=== PATIENT | male | born 1955 | race Caucasian/White ===

== ENCOUNTER 2017-03-29 07:54 | Observation (INO) | payer MEDICAID ==
[~2017-03-29] VITALS: Ht 177.8 cm; Wt 76.0 kg
[~2017-03-29 07:54] MED LIST: ALBU0.63 NEB; AMOX1TAB12 PO; CARB200T PO; HYDR50TA13 PO; IBUP800T PO; LOSA25TA5 PO; MIRT30TA4 PO; OMEP20TA62 PO
[2017-03-29] MEDS ORDERED: RISPERIDONE 1 MG TABLET PO ONE (08:37)
[2017-03-29 11:34] LABS: ASPARTATE AMINO TRANSFERASE 25 U/L (15-37); BLOOD UREA NITROGEN 16 mg/dL (7-18)
[2017-03-29] MEDS ORDERED: ONDANSETRON ODT 4 MG PO PRN (12:00)
[2017-03-29] MEDS ORDERED: DOCUSATE 100 MG CAPSULE PO PRN (12:00)
[2017-03-29] MEDS ORDERED: ZIPRASIDONE 20MG CAPSULE PO PRN (12:00)
[2017-03-29] MEDS ORDERED: POLYETHYLENE GLYCOL 17 GM PACKET PO PRN (12:00)
[2017-03-29] MEDS ORDERED: LORazepam 1MG TABLET PO PRN (12:00)
[2017-03-29] MEDS ORDERED: BISACODYL 10 MG SUPP PR PRN (12:00)
[2017-03-29] MEDS ORDERED: ACETAMINOPHEN 325 MG TABLET PO PRN (12:00)
[2017-03-29] MEDS ORDERED: NICOTINE 21 MG/24 HR PATCH.TD24 ONE (12:35)
[2017-03-29] MEDS ORDERED: THIAMINE 100MG TABLET ONE (12:36)
[2017-03-29] MEDS: THIAMINE 100MG TABLET PO SCH (12:41)
[2017-03-29] MEDS: NICOTINE 21 MG/24 HR PATCH.TD24 TD SCH (12:41)
[2017-03-29] MEDS: MULTIVITAMIN 1 TABLET PO SCH (13:22)
[2017-03-29] MEDS: FOLIC ACID 1 MG TABLET PO SCH (13:23)
[2017-03-29 14:53] LABS: DAU SCREEN DISCLAIMER
[2017-03-29 14:58] LABS: PATH.CAST-FLAG NOT PRESENT; SPERM-FLAG NOT PRESENT; SRC-FLAG NOT PRESENT; XTAL-FLAG NOT PRESENT; YLC-FLAG NOT PRESENT
[2017-03-29] MEDS ORDERED: ZIPRASIDONE 20 MG INJ IM PRN (15:50)
[2017-03-29 17:58] VITALS: BP 131/65
[2017-03-29 18:19] VITALS: BP 131/65
[2017-03-29 19:23] VITALS: BP 121/68
[2017-03-30 07:41] VITALS: BP 128/76
[2017-03-30] MEDS: FOLIC ACID 1 MG TABLET PO SCH (08:23)
[2017-03-30] MEDS: THIAMINE 100MG TABLET PO SCH (08:23)
[2017-03-30] MEDS: MULTIVITAMIN 1 TABLET PO SCH (08:23)
[2017-03-30] MEDS: NICOTINE 21 MG/24 HR PATCH.TD24 TD SCH (12:58)
[2017-03-30] MEDS ORDERED: FOLI-17 PO (15:24)
[2017-03-30] MEDS ORDERED: MULT1TAB60 PO (15:24)
[2017-03-30] MEDS ORDERED: THIA100T6 PO (15:24)
== END 2017-03-30 18:45 | disposition home or self-care (01) ==
LOC: ED 08:17 → EDIP 10:38 → 3E 15:44
PROVIDERS: ADMIT Internal Medicine; ATTEND Internal Medicine
DX: F19.151 Other psychoactive substance abuse with psychoactive substance-induced psychotic disorder with hallucinations (principal); F19.150 Other psychoactive substance abuse with psychoactive substance-induced psychotic disorder with delusions; F22 Delusional disorders; R44.1 Visual hallucinations; R00.0 Tachycardia, unspecified; I10 Essential (primary) hypertension; J44.9 Chronic obstructive pulmonary disease, unspecified; J38.6 Stenosis of larynx; B18.2 Chronic viral hepatitis C; F41.9 Anxiety disorder, unspecified; K21.9 Gastro-esophageal reflux disease without esophagitis; Z59.0 Homelessness; Z91.19 Patient's noncompliance with other medical treatment and regimen; Z80.8 Family history of malignant neoplasm of other organs or systems; Z82.3 Family history of stroke; Z87.891 Personal history of nicotine dependence
CPT/HCPCS: 36415; 80053; 80307; 81001; 85025; 93005; 99285; G0378

== ENCOUNTER 2017-04-29 20:01 | Inpatient (IN) | payer MEDICAID ==
[~2017-04-29] VITALS: Ht 177.8 cm; Wt 73.9 kg
[~2017-04-29 20:01] MED LIST changes: +FOLI-17 PO; +MULT1TAB60 PO; +THIA100T6 PO
[2017-04-29 21:16] LABS: DAU SCREEN DISCLAIMER
[2017-04-29 21:22] LABS: ASPARTATE AMINO TRANSFERASE 8 U/L (15-37); BLOOD UREA NITROGEN 11 mg/dL (7-18)
[2017-04-29 21:26] LABS: ACETAMINOPHEN < 2 mcg/mL (10-30)
[2017-04-30] MEDS ORDERED: SODIUM CHLORIDE FLUSH 10ML SYR IVF PRN (07:00)
[2017-04-30] MEDS ORDERED: ALBUTEROL SULFATE 2.5 MG/3 ML NEB PRN (08:30)
[2017-04-30] MEDS ORDERED: HALOPERIDOL 5 MG/ML IM PRN (08:30)
[2017-04-30] MEDS ORDERED: TEMAZEPAM 15 MG CAPSULE PO PRN (08:30)
[2017-04-30] MEDS ORDERED: BENZTROPINE 1 MG TABLET PO PRN (08:30)
[2017-04-30] MEDS ORDERED: BENZTROPINE 1 MG/ML, 2 ML IM PRN (08:30)
[2017-04-30] MEDS ORDERED: LABETALOL 5MG/ML, 20ML IV PRN (08:30)
[2017-04-30] MEDS ORDERED: OXYcodone/APAP 5/325MG TABLET PO PRN (08:30)
[2017-04-30] MEDS ORDERED: ZIPRASIDONE 20 MG INJ IM PRN (08:30)
[2017-04-30] MEDS ORDERED: LORazepam 2 MG/ML, 1ML IV PRN ×3 (08:30)
[2017-04-30 09:51] VITALS: BP 156/86
[2017-04-30] MEDS: LORazepam 2 MG/ML, 1ML IV PRN ×4 (10:40→22:39)
[2017-04-30] MEDS: MULTIVITAMINS/MINERALS TABLET PO SCH (11:38)
[2017-04-30] MEDS: hydrOXyzine 50MG TABLET PO SCH ×2 (11:38→19:58)
[2017-04-30] MEDS: ENOXAPARIN 40 MG/0.4 ML SQ SCH (11:39)
[2017-04-30] MEDS: POTASSIUM CHLORIDE 20 MEQ, MVI ADULT 10 ML, FOLIC ACID 1 MG, MAGNESIUM SULFATE 1 GM in ... IV SCH (13:45)
[2017-04-30 15:30] VITALS: BP 136/87
[2017-04-30 17:02] VITALS: BP 137/84
[2017-04-30 18:45] VITALS: BP 133/67
[2017-04-30] MEDS: CARBAMAZEPINE 200 MG TABLET PO SCH (19:57)
[2017-04-30] MEDS: MIRTAZAPINE 15 MG TABLET PO SCH (19:58)
[2017-05-01 03:19] VITALS: BP 146/83
[2017-05-01] MEDS: LORazepam 2 MG/ML, 1ML IV PRN ×2 (03:23→09:06)
[2017-05-01] MEDS: hydrOXyzine 50MG TABLET PO SCH ×3 (03:23→20:40)
[2017-05-01 06:04] LABS: ASPARTATE AMINO TRANSFERASE 16 U/L (15-37); BLOOD UREA NITROGEN 16 mg/dL (7-18)
[2017-05-01 08:09] VITALS: BP 130/75
[2017-05-01] MEDS: ENOXAPARIN 40 MG/0.4 ML SQ SCH (08:54)
[2017-05-01] MEDS: MULTIVITAMINS/MINERALS TABLET PO SCH (09:06)
[2017-05-01] MEDS: LORazepam 1MG TABLET PO PRN (14:00)
[2017-05-01] MEDS ORDERED: LORazepam 1MG TABLET PO PRN ×2 (14:00)
[2017-05-01 14:01] VITALS: BP 127/73
[2017-05-01] MEDS: LORazepam 0.5MG TABLET PO PRN (17:46)
[2017-05-01 18:53] VITALS: BP 123/72
[2017-05-01] MEDS: POTASSIUM CHLORIDE 20 MEQ, MVI ADULT 10 ML, FOLIC ACID 1 MG, MAGNESIUM SULFATE 1 GM in ... IV SCH (20:20)
[2017-05-01] MEDS: CARBAMAZEPINE 200 MG TABLET PO SCH (20:40)
[2017-05-01] MEDS: MIRTAZAPINE 15 MG TABLET PO SCH (20:40)
[2017-05-02 01:15] VITALS: BP 129/76
[2017-05-02] MEDS: hydrOXyzine 50MG TABLET PO SCH ×3 (03:30→19:32)
[2017-05-02 08:15] VITALS: BP 153/103
[2017-05-02] MEDS: ENOXAPARIN 40 MG/0.4 ML SQ SCH (09:03)
[2017-05-02] MEDS: LORazepam 1MG TABLET PO PRN ×2 (09:21→11:49)
[2017-05-02] MEDS: MULTIVITAMINS/MINERALS TABLET PO SCH (09:21)
[2017-05-02 12:51] VITALS: BP 125/81
[2017-05-02] MEDS: LORazepam 0.5MG TABLET PO PRN (16:27)
[2017-05-02 18:20] VITALS: BP 108/64
[2017-05-02] MEDS: POTASSIUM CHLORIDE 20 MEQ, MVI ADULT 10 ML, FOLIC ACID 1 MG, MAGNESIUM SULFATE 1 GM in ... IV SCH (20:00)
[2017-05-02] MEDS: CARBAMAZEPINE 200 MG TABLET PO SCH (21:32)
[2017-05-02] MEDS: MIRTAZAPINE 15 MG TABLET PO SCH (21:32)
[2017-05-03 00:07] VITALS: BP 100/61
[2017-05-03] MEDS: hydrOXyzine 50MG TABLET PO SCH ×3 (03:30→19:23)
[2017-05-03 08:26] VITALS: BP 115/68
[2017-05-03] MEDS: ENOXAPARIN 40 MG/0.4 ML SQ SCH (09:30)
[2017-05-03] MEDS: MULTIVITAMINS/MINERALS TABLET PO SCH (11:22)
[2017-05-03] MEDS: LORazepam 1MG TABLET PO PRN (11:45)
[2017-05-03 13:40] VITALS: BP 118/73
[2017-05-03 18:35] VITALS: BP 119/77
[2017-05-03] MEDS: MIRTAZAPINE 15 MG TABLET PO SCH (20:23)
[2017-05-03] MEDS: CARBAMAZEPINE 200 MG TABLET PO SCH (20:23)
[2017-05-03] MEDS: LORazepam 0.5MG TABLET PO PRN (20:23)
[2017-05-04 03:06] VITALS: BP 121/77
[2017-05-04] MEDS: hydrOXyzine 50MG TABLET PO SCH ×3 (03:30→20:36)
[2017-05-04 07:23] VITALS: BP 135/85
[2017-05-04] MEDS: MULTIVITAMINS/MINERALS TABLET PO SCH (09:00)
[2017-05-04] MEDS: ENOXAPARIN 40 MG/0.4 ML SQ SCH (09:30)
[2017-05-04] MEDS: LORazepam 1MG TABLET PO PRN ×3 (12:45→20:45)
[2017-05-04 13:57] VITALS: BP 100/60
[2017-05-04 17:19] VITALS: BP 132/78
[2017-05-04 19:31] VITALS: BP 117/76
[2017-05-04] MEDS: CARBAMAZEPINE 200 MG TABLET PO SCH (20:36)
[2017-05-04] MEDS: MIRTAZAPINE 15 MG TABLET PO SCH (20:36)
[2017-05-05] MEDS: hydrOXyzine 50MG TABLET PO SCH ×3 (03:30→19:30)
[2017-05-05] MEDS: ENOXAPARIN 40 MG/0.4 ML SQ SCH (08:41)
[2017-05-05] MEDS: LORazepam 0.5MG TABLET PO PRN ×2 (09:00→15:16)
[2017-05-05] MEDS: MULTIVITAMINS/MINERALS TABLET PO SCH (09:00)
[2017-05-05 09:17] VITALS: BP 126/84
[2017-05-05 19:34] VITALS: BP 115/63
[2017-05-05] MEDS: MIRTAZAPINE 15 MG TABLET PO SCH (20:41)
[2017-05-05] MEDS: LORazepam 1MG TABLET PO PRN (20:42)
[2017-05-05] MEDS: CARBAMAZEPINE 200 MG TABLET PO SCH (20:42)
[2017-05-06] MEDS: hydrOXyzine 50MG TABLET PO SCH ×3 (03:30→20:34)
[2017-05-06 09:02] VITALS: BP 104/67
[2017-05-06] MEDS: ENOXAPARIN 40 MG/0.4 ML SQ SCH (09:17)
[2017-05-06] MEDS: MULTIVITAMINS/MINERALS TABLET PO SCH (09:18)
[2017-05-06] MEDS: LORazepam 0.5MG TABLET PO PRN (09:19)
[2017-05-06] MEDS: LORazepam 1MG TABLET PO PRN (12:18)
[2017-05-06 19:42] VITALS: BP 104/64
[2017-05-06] MEDS: CARBAMAZEPINE 200 MG TABLET PO SCH (20:34)
[2017-05-06] MEDS: MIRTAZAPINE 15 MG TABLET PO SCH (20:34)
[2017-05-07] MEDS: hydrOXyzine 50MG TABLET PO SCH ×3 (03:30→20:30)
[2017-05-07 08:00] VITALS: BP 123/73
[2017-05-07] MEDS: ENOXAPARIN 40 MG/0.4 ML SQ SCH ×2 (09:30→17:00)
[2017-05-07] MEDS: MULTIVITAMINS/MINERALS TABLET PO SCH (09:33)
[2017-05-07] MEDS: LORazepam 1MG TABLET PO PRN ×2 (09:34→17:11)
[2017-05-07 20:04] VITALS: BP 124/64
[2017-05-07] MEDS: CARBAMAZEPINE 200 MG TABLET PO SCH (20:30)
[2017-05-07] MEDS: MIRTAZAPINE 15 MG TABLET PO SCH (20:30)
[2017-05-08] MEDS: hydrOXyzine 50MG TABLET PO SCH ×3 (03:30→20:19)
[2017-05-08 08:32] VITALS: BP 128/83
[2017-05-08] MEDS: LORazepam 1MG TABLET PO PRN ×2 (09:29→16:43)
[2017-05-08] MEDS ORDERED: ENOXAPARIN 40 MG/0.4 ML SQ SCH (09:30)
[2017-05-08] MEDS: MULTIVITAMINS/MINERALS TABLET PO SCH (16:43)
[2017-05-08] MEDS: ENOXAPARIN 40 MG/0.4 ML SQ SCH (18:18)
[2017-05-08] MEDS: MIRTAZAPINE 15 MG TABLET PO SCH (20:19)
[2017-05-08] MEDS: CARBAMAZEPINE 200 MG TABLET PO SCH (20:19)
[2017-05-08 20:30] VITALS: BP 107/63
[2017-05-09] MEDS: hydrOXyzine 50MG TABLET PO SCH (03:30)
[2017-05-09] MEDS: MULTIVITAMINS/MINERALS TABLET PO SCH (08:44)
[2017-05-09 08:45] VITALS: BP 119/70
[2017-05-09] MEDS ORDERED: BENZ1TAB61 PO (10:48)
[2017-05-09] MEDS ORDERED: MULT-484 PO (10:48)
== END 2017-05-09 12:00 | DRG 897 ==
LOC: ED 23:59 → INTOOBSV 04-30 07:03 → EDIP 04-30 07:03 → 4WST 04-30 09:02 → 3NE 04-30 15:32 → OBSVTOIN 05-02 09:43 → 3E 05-04 17:02
PROVIDERS: ADMIT Family Medicine; ATTEND Family Medicine
DX: F10.239 Alcohol dependence with withdrawal, unspecified (principal); R45.851 Suicidal ideations; F31.9 Bipolar disorder, unspecified; K21.9 Gastro-esophageal reflux disease without esophagitis; I10 Essential (primary) hypertension; J44.9 Chronic obstructive pulmonary disease, unspecified; B18.2 Chronic viral hepatitis C; F41.9 Anxiety disorder, unspecified; Z91.19 Patient's noncompliance with other medical treatment and regimen; Z82.3 Family history of stroke; Z80.8 Family history of malignant neoplasm of other organs or systems; Z59.0 Homelessness; F19.10 Other psychoactive substance abuse, uncomplicated; F15.90 Other stimulant use, unspecified, uncomplicated; J38.00 Paralysis of vocal cords and larynx, unspecified; F10.220 Alcohol dependence with intoxication, uncomplicated
CPT/HCPCS: 36415; 80053; 80307; 80329; 81003; 82565; 83735; 84100; 85025; G0378; J1650; J3475; J3480; J7042; G0480; J2060

== ENCOUNTER 2017-05-29 02:49 | Emergency (ER) | payer MEDICAID ==
[~2017-05-29] VITALS: Ht 177.8 cm; Wt 75.7 kg
[~2017-05-29 02:49] MED LIST changes: +BENZ1TAB61 PO; +MULT-484 PO
[2017-05-29 03:29] VITALS: BP 173/109
[2017-05-29] MEDS ORDERED: LORazepam 1MG TABLET PO ONE (04:00)
[2017-05-29] MEDS ORDERED: TRIAMCINOLONE CRM 0.1%, 15GM TP ONE (04:00)
== END 2017-05-29 03:56 | disposition left against medical advice (07) ==
LOC: ED 03:45
DX: L30.8 Other specified dermatitis (principal); J44.9 Chronic obstructive pulmonary disease, unspecified; I10 Essential (primary) hypertension; K21.9 Gastro-esophageal reflux disease without esophagitis; F10.129 Alcohol abuse with intoxication, unspecified; F15.10 Other stimulant abuse, uncomplicated; Z72.0 Tobacco use
CPT/HCPCS: 93005; 99283

== ENCOUNTER 2019-01-01 20:11 | Inpatient (IN) | payer MEDICAID ==
[~2019-01-01] VITALS: Ht 177.8 cm; Wt 74.6 kg
[~2019-01-01 20:11] MED LIST changes: +IBUP-1223 PO; -IBUP800T PO; +LOSA25TA25 PO; -LOSA25TA5 PO; -THIA100T6 PO; +THIA100T67 PO
--- NOTE | 2019-01-01 20:16 | NUR ---
PT INITALLY WITH 1-2 WORD SENTENCES HOWEVER WHEN EJ IV DISCUSSED PT ABLE TO CURSE AT THIS RN IN FULL SENTENCES.
[2019-01-01] MEDS ORDERED: SODIUM CHLORIDE FLUSH 10ML SYR IVF ONE (20:30)
[2019-01-01] MEDS ORDERED: KETAMINE 100 MG/ML, 5ML IV ONE (20:30)
--- NOTE | 2019-01-01 20:34 | NUR ---
PT REFUSING TO COMPLY WITH ATTEMPT FOR EJ. PT AGAIN ABLE TO VERBALLIZE IN FULL SENTENCES HIS DISLIKE OF EJS. PT THEN AGAIN ABLE TO SPEAK IN FULL SENTENCES REQUESTING TO SEE AN EAR NOSE THROAT DOCTOR AND THE "ER DOCTOR IS FULL OF SHIT"
[2019-01-01 20:48] LABS: BASOPHILS # (AUTO) 0.06 x10^3/uL (0-0.1); BASOPHILS % (AUTO) 0 % (0-1); EOSINOPHILS # (AUTO) 0.94 x10^3/uL (0-0.4); EOSINOPHILS % (AUTO) 7 % (1-7); LYMPHOCYTES # (AUTO) 3.62 x10^3/uL (1-3.4); LYMPHOCYTES % (AUTO) 27 % (22-44); MD NO; MEAN CORPUSCULAR HEMOGLOBIN 29.7 pg (27.5-34.5); MEAN CORPUSCULAR HGB CONC 33.8 g/dL (33.2-36.2); MEAN CORPUSCULAR VOLUME 87.9 fL (81-97); MEAN PLATELET VOLUME 7.9 fL (7.4-10.4); MONOCYTES # (AUTO) 0.91 x10^3/uL (0.2-0.8); MONOCYTES % (AUTO) 7 % (2-9); NEUTROPHILS # (AUTO) 8.04 x10^3/uL (1.8-6.8); NEUTROPHILS % (AUTO) 59 % (42-75); PLATELET COUNT 324 x10^3/uL (130-400); RED BLOOD COUNT 5.28 x10^6/uL (4.38-5.82); RED CELL DISTRIBUTION WIDTH 14.2 % (9.4-14.8)
[2019-01-01 20:56] LABS: ALANINE AMINOTRANSFERASE 18 U/L (12-78); ALBUMIN 3.1 g/dL (3.4-5.0); ANION GAP 9 mmol/L (5-15); CALCIUM 8.1 mg/dL (8.5-10.1); CHLORIDE 110 mmol/L (98-107); CREATININE 0.72 mg/dL (0.7-1.3)
[2019-01-01 20:58] LABS: ALKALINE PHOSPHATASE 68 U/L (45-117); BILIRUBIN,TOTAL 0.3 mg/dL (0.2-1.0); TOTAL PROTEIN 7.1 g/dL (6.4-8.2)
[2019-01-01] MEDS ORDERED: CEFTRIAXONE PMX 1GM/50ML 50 ML IV ONE (21:30)
[2019-01-01] MEDS ORDERED: AZITHROMYCIN 500 MG in SODIUM CHLORIDE 0.9% 250 ML IV ONE (21:30)
[2019-01-01] MEDS ORDERED: CEFAZOLIN PMX 1GM/50ML 50 ML ONE (21:34)
[2019-01-01] MEDS ORDERED: SODIUM CHLORIDE 0.9% 1,000ML IVBOLUS ONE (22:30)
--- NOTE | 2019-01-01 23:00 | NUR ---
ABX FINISHED. VSS, NS RUNNING. PT SLEEPING WITH NO NEEDS AT THIS TIME. CALL LIGHT IN REACH
--- NOTE | 2019-01-02 00:14 | NUR ---
LAB AT BEDSIDE. PT RESTING WITH NO NEEDS AT THIS TIME. CALL LIGHT IN REACH
[2019-01-02] MEDS ORDERED: DILTIAZEM 5 MG/ML, 5ML IVPush PRN (01:00)
[2019-01-02] MEDS ORDERED: ACETAMINOPHEN 325 MG TABLET PO PRN (01:00)
[2019-01-02] MEDS ORDERED: DOCUSATE 100 MG CAPSULE PO PRN (01:00)
[2019-01-02] MEDS ORDERED: hydrALAzine 20 MG/ML, 1ML IVPush PRN (01:00)
[2019-01-02] MEDS ORDERED: ONDANSETRON ODT 4 MG PO PRN (01:00)
[2019-01-02] MEDS ORDERED: LIDODERM 5% PATCH TD PRN (01:00)
[2019-01-02 01:49] VITALS: BP 98/50
[2019-01-02] MEDS: D5%-0.45% NACL 1,000 ML IV SCH ×2 (03:00→09:09)
[2019-01-02] MEDS: LORazepam 2 MG/ML, 1ML IVPush PRN ×6 (03:11→19:43)
[2019-01-02] MEDS: TEMAZEPAM 15 MG CAPSULE PO PRN ×2 (03:16→19:43)
[2019-01-02] MEDS: ALBUTEROL/IPRATROPIUM 2.5MG/0.5MG, 3 ML NPPB SCH ×4 (07:00→18:55)
[2019-01-02 08:09] VITALS: BP 106/62
[2019-01-02] MEDS: BENZONATATE 100 MG CAPSULE PO SCH ×3 (08:47→19:43)
[2019-01-02] MEDS ORDERED: AZITHROMYCIN 500 MG in SODIUM CHLORIDE 0.9% 250 ML IV SCH (11:00)
[2019-01-02] MEDS: CEFTRIAXONE PMX 1GM/50ML 50 ML IV SCH ×2 (12:07→23:46)
[2019-01-02 14:00] VITALS: BP 104/58
[2019-01-02] MEDS ORDERED: GABAPENTIN 300 MG CAPSULE PO PRN (16:00)
[2019-01-02 18:39] VITALS: BP 118/56
[2019-01-02] MEDS: FOLIC ACID 1 MG TABLET PO SCH (19:43)
[2019-01-02] MEDS: GUAIFENESIN 200 MG TABLET PO SCH (19:43)
[2019-01-02] MEDS: metroNIDAZOLE 500 MG TABLET PO SCH (19:43)
[2019-01-02] MEDS: THIAMINE 100MG TABLET PO SCH (19:43)
[2019-01-02] MEDS ORDERED: OMNIPAQUE 350 MG/ML, 100ML BOTTLE ONE (22:01)
[2019-01-02] MEDS: SODIUM CHLORIDE NASAL SPRAY 45ML BOTTLE NAS SCH (23:46)
[2019-01-03] MEDS ORDERED: D5%-0.45% NACL 1,000 ML IV SCH (00:33)
[2019-01-03] MEDS: LORazepam 2 MG/ML, 1ML IVPush PRN ×2 (03:47→08:24)
[2019-01-03] MEDS: metroNIDAZOLE 500 MG TABLET PO SCH (03:49)
[2019-01-03 05:29] LABS: ANION GAP 7 mmol/L (5-15); BASOPHILS # (AUTO) 0.04 x10^3/uL (0-0.1); BASOPHILS % (AUTO) 1 % (0-1); CHLORIDE 108 mmol/L (98-107); EOSINOPHILS # (AUTO) 0.27 x10^3/uL (0-0.4); EOSINOPHILS % (AUTO) 3 % (1-7); LYMPHOCYTES # (AUTO) 1.74 x10^3/uL (1-3.4); LYMPHOCYTES % (AUTO) 21 % (22-44); MD NO; MEAN CORPUSCULAR HEMOGLOBIN 29.5 pg (27.5-34.5); MEAN CORPUSCULAR HGB CONC 33.4 g/dL (33.2-36.2); MEAN CORPUSCULAR VOLUME 88.2 fL (81-97); MEAN PLATELET VOLUME 7.7 fL (7.4-10.4); MONOCYTES # (AUTO) 0.62 x10^3/uL (0.2-0.8); MONOCYTES % (AUTO) 8 % (2-9); NEUTROPHILS # (AUTO) 5.59 x10^3/uL (1.8-6.8); NEUTROPHILS % (AUTO) 68 % (42-75); PLATELET COUNT 214 x10^3/uL (130-400); RED CELL DISTRIBUTION WIDTH 14.2 % (9.4-14.8)
[2019-01-03] MEDS: GUAIFENESIN 200 MG TABLET PO SCH (05:29)
[2019-01-03] MEDS: ALBUTEROL/IPRATROPIUM 2.5MG/0.5MG, 3 ML NPPB SCH (06:39)
[2019-01-03 08:00] VITALS: BP 138/80
[2019-01-03] MEDS: BENZONATATE 100 MG CAPSULE PO SCH (08:23)
[2019-01-03] MEDS: THIAMINE 100MG TABLET PO SCH (08:24)
[2019-01-03] MEDS: FOLIC ACID 1 MG TABLET PO SCH (08:24)
[2019-01-03] MEDS: SODIUM CHLORIDE NASAL SPRAY 45ML BOTTLE NAS SCH (08:24)
== END 2019-01-03 11:09 | disposition left against medical advice (07) | DRG 871 ==
LOC: ED 22:21 → EDIP 22:26 → ED 23:00 → 5SO 01-02 01:40 → 4WST 01-02 18:56
PROVIDERS: ADMIT Internal Medicine; ATTEND Internal Medicine
DX: A41.9 Sepsis, unspecified organism (principal); J15.9 Unspecified bacterial pneumonia; J96.91 Respiratory failure, unspecified with hypoxia; F10.239 Alcohol dependence with withdrawal, unspecified; J44.0 Chronic obstructive pulmonary disease with (acute) lower respiratory infection; J90 Pleural effusion, not elsewhere classified; B18.2 Chronic viral hepatitis C; F10.229 Alcohol dependence with intoxication, unspecified; Y90.9 Presence of alcohol in blood, level not specified; F31.9 Bipolar disorder, unspecified; F41.1 Generalized anxiety disorder; I10 Essential (primary) hypertension; K21.9 Gastro-esophageal reflux disease without esophagitis; Z59.0 Homelessness; Z80.8 Family history of malignant neoplasm of other organs or systems; Z82.3 Family history of stroke; Z91.14 Patient's other noncompliance with medication regimen; Z88.8 Allergy status to other drugs, medicaments and biological substances; Z53.21 Procedure and treatment not carried out due to patient leaving prior to being seen by health care provider
CPT/HCPCS: 36415; 36600; 84145; 99285; J7620; 71045; 71260; 80048; 80053; 82803; 83605; 83735; 85025; 87040; 93005; 94640; 96365; 96375; G0378; J0456; J0696; Q9967; J2060; J7030; J7050; J7512

== ENCOUNTER 2019-01-05 04:22 | Emergency (ER) | payer MEDICAID ==
[~2019-01-05] VITALS: Ht 177.8 cm; Wt 75.0 kg
--- NOTE | 2019-01-05 04:54 | NUR ---
PT ERE FOR INCREASED SOB. VSS. PT MEDICATED. XRAY AT BEDSIDE. CALL LIGHT IN REACH
[2019-01-05 05:15] LABS: BASOPHILS # (AUTO) 0.03 x10^3/uL (0-0.1); BASOPHILS % (AUTO) 0 % (0-1); EOSINOPHILS # (AUTO) 0.54 x10^3/uL (0-0.4); EOSINOPHILS % (AUTO) 5 % (1-7); LYMPHOCYTES # (AUTO) 1.97 x10^3/uL (1-3.4); LYMPHOCYTES % (AUTO) 17 % (22-44); MD NO; MEAN CORPUSCULAR HEMOGLOBIN 29.8 pg (27.5-34.5); MEAN CORPUSCULAR HGB CONC 34.1 g/dL (33.2-36.2); MEAN CORPUSCULAR VOLUME 87.4 fL (81-97); MEAN PLATELET VOLUME 7.9 fL (7.4-10.4); MONOCYTES # (AUTO) 0.83 x10^3/uL (0.2-0.8); MONOCYTES % (AUTO) 7 % (2-9); NEUTROPHILS # (AUTO) 7.96 x10^3/uL (1.8-6.8); NEUTROPHILS % (AUTO) 70 % (42-75); PLATELET COUNT 256 x10^3/uL (130-400); RED BLOOD COUNT 4.87 x10^6/uL (4.38-5.82); RED CELL DISTRIBUTION WIDTH 14.4 % (9.4-14.8)
[2019-01-05 05:24] LABS: ALBUMIN 3.4 g/dL (3.4-5.0); ANION GAP 8 mmol/L (5-15); CALCIUM 8.1 mg/dL (8.5-10.1); CHLORIDE 106 mmol/L (98-107)
[2019-01-05 05:27] LABS: ALANINE AMINOTRANSFERASE 21 U/L (12-78); ALKALINE PHOSPHATASE 57 U/L (45-117); BILIRUBIN,TOTAL 0.5 mg/dL (0.2-1.0); TOTAL PROTEIN 7.1 g/dL (6.4-8.2)
[2019-01-05] MEDS ORDERED: ALBUTEROL/IPRATROPIUM 2.5MG/0.5MG, 3 ML ONE ×2 (05:30→05:54)
--- NOTE | 2019-01-05 05:31 | NUR ---
RT AT BEDSIDE
[2019-01-05] MEDS: ALBUTEROL/IPRATROPIUM 2.5MG/0.5MG, 3 ML NPPB SCH ×2 (05:41→05:59)
--- NOTE | 2019-01-05 06:25 | NUR ---
PT TO BE ADMITTED. PIV PLACED. WAITING FOR LAB TO DRAW BEFORE ABX ARE HUNG. CALL LIGHT IN REACH
[2019-01-05] MEDS ORDERED: AZITHROMYCIN 500 MG in SODIUM CHLORIDE 0.9% 250 ML IVPB ONE (06:30)
[2019-01-05] MEDS ORDERED: SODIUM CHLORIDE FLUSH 10ML SYR IVF PRN (06:30)
[2019-01-05] MEDS ORDERED: METRONIDAZOLE PMX 500MG/100ML 100 ML IVPB ONE (06:30)
[2019-01-05] MEDS ORDERED: SODIUM CHLORIDE 0.9% 1,000 ML IV SCH (07:16)
[2019-01-05] MEDS ORDERED: ONDANSETRON 2MG/ML, 2ML IVPush PRN (07:30)
[2019-01-05] MEDS ORDERED: HEPARIN 5,000 UNITS/ML, 1ML SQ SCH (07:30)
[2019-01-05] MEDS ORDERED: AMPICILLIN/SULBACTAM 1,500 MG in SODIUM CHLORIDE 0.9% 50 ML IV SCH (07:30)
[2019-01-05] MEDS ORDERED: ACETAMINOPHEN 325 MG TABLET PO PRN (07:30)
[2019-01-05] MEDS ORDERED: AZITHROMYCIN 500 MG in SODIUM CHLORIDE 0.9% 250 ML IV SCH (07:30)
[2019-01-05] MEDS: SODIUM CHLORIDE 0.9% 1,000 ML IV SCH ×3 (07:30→09:19)
[2019-01-05] MEDS ORDERED: LABETALOL 5MG/ML, 20ML IVPush PRN (07:30)
[2019-01-05] MEDS ORDERED: CALCIUM CARBONATE 500 MG TAB.CHEW PO PRN (07:30)
[2019-01-05] MEDS ORDERED: NICOTINE 14MG/24 HR PATCH.TD24 TD SCH (07:30)
[2019-01-05] MEDS ORDERED: CEFTRIAXONE PMX 1GM/50ML 50 ML ONE (07:46)
[2019-01-05] MEDS ORDERED: GLUCAGON 1 MG IM PRN (08:00)
[2019-01-05] MEDS ORDERED: DEXTROSE 4 GM TAB.CHEW PO PRN (08:00)
[2019-01-05] MEDS ORDERED: LABETALOL 5 MG/ML SYRINGE IVPush PRN (08:00)
[2019-01-05] MEDS ORDERED: DEXTROSE 50%, 50ML SYRINGE IVPush PRN (08:00)
[2019-01-05] MEDS: CEFTRIAXONE PMX 1GM/50ML 50 ML IV ONE ×2 (08:03→09:19)
--- NOTE | 2019-01-05 08:16 | NUR ---
PIV IN RIGHT AC INFILTRATED. REMOVED PIV. STARTING NEW PIV. PT AT RESTROOM AT THIS TIME. TERRELL.
--- NOTE | 2019-01-05 08:16 | NUR ---
LATE NOTE ENTERY FOR 0700: RECIEVED REPORT FROM MIKIE BARTON. ALL QUESTIONS ANSWERED. PT AMBULATORY WITH STEADY GAIT AND BALANCE TO RESTROOM.
[2019-01-05 08:22] LABS: HCT (SEDRATE) 42.6 % (39.2-51.8)
[2019-01-05] MEDS ORDERED: MULTIVITAMIN 1 TABLET PO SCH (09:00)
[2019-01-05] MEDS ORDERED: THIAMINE 100MG TABLET PO SCH (09:00)
[2019-01-05] MEDS ORDERED: FOLIC ACID 1 MG TABLET PO SCH (09:00)
[2019-01-05] MEDS ORDERED: SODIUM CHLORIDE FLUSH 10ML SYR IVF SCH (09:00)
--- NOTE | 2019-01-05 09:19 | NUR ---
Ultrasound PIV placed by [facility] staff. PIV fluids and medication infusing per EMAR. NADN. All safety measures in place. Call light and urinal within reach. No other needs expressed at this time.
--- NOTE | 2019-01-05 09:26 | NUR ---
Pt requesting Ativan. Pt states, "I am detoxing." Pt states, "My last drink was at 7 pm last night. I drink about 3 pints in a 24 hour period." Admitting MD called at [phone].
--- NOTE | 2019-01-05 09:28 | NUR ---
Spoke with Dr. Unger regarding pt request for Ativan. Per Dr. Unger's request, starting CIWA protocol.
--- NOTE | 2019-01-05 09:29 | NUR ---
PT'S CURRENT CIWA SCORE IS 1. REASSESS IN 4 HOURS.
[2019-01-05] MEDS ORDERED: HEPARIN 5,000 UNITS/ML, 1ML ONE (10:53)
[2019-01-05] MEDS ORDERED: THIAMINE 100MG TABLET ONE (10:54)
[2019-01-05] MEDS ORDERED: NICOTINE 14MG/24 HR PATCH.TD24 ONE (10:54)
[2019-01-05 11:10] VITALS: BP 137/78
--- NOTE | 2019-01-05 11:45 | NUR ---
LATE NOTE ENTRY: Pt admitted to smoking in ED restroom to ED RN. Pt handed ciggaretts to ED RN to be held. Pt asking to speak to a stonework supervisor. ED stonework supervisor aware. Pt refusing heparin per EMAR. Pt educated pro's and con's of medicaiton. Pt continues to refuses.
--- NOTE | 2019-01-05 11:58 | NUR ---
Pt refusing to sign AMA paperwork. Pt educated on pro's and con's of leaving AMA. Pt chooses elopment. PIV d/c'd with tip intact. PIV site asymptomatic, skin is intact. Pt has steady gait and balance to discharge. Pt left with all personal belongings.
--- NOTE | 2019-01-05 12:16 | NUR ---
ATTEMPTED TO CONVINCE THE PATIENT TO STAY. INSISTED TO LEAVE. REFUSED TO SIGN AMA FORM.
== END 2019-01-05 12:38 | disposition left against medical advice (07) ==
LOC: ED 06:27 → UNDOADMIN 06:28 → EDIP 06:28 → ED 12:38
DX: R06.00 Dyspnea, unspecified (principal); J18.9 Pneumonia, unspecified organism; I10 Essential (primary) hypertension; K21.9 Gastro-esophageal reflux disease without esophagitis; J44.9 Chronic obstructive pulmonary disease, unspecified
CPT/HCPCS: 36415; 71045; 80053; 80307; 83605; 84145; 85025; 85651; 87040; 93005; 94640; 96365; 96367; 99284; J0456; J0696; J7030; J7050; J7512; J7620